=== PATIENT | female | born 1970 | race African-American/Black ===

== ENCOUNTER 2017-08-05 14:25 | Emergency (ER) | payer SELFPAY ==
[~2017-08-05] VITALS: Ht 165.1 cm; Wt 59.9 kg
--- NOTE | 2017-08-05 14:35 | NUR ---
IMPACTED EAR WAX REMOVED BY DR BRUNER.
--- NOTE | 2017-08-05 14:47 | NUR ---
Patient discharged to home in stable conditon. Written and verbal after care instructions given. Patient verbalizes understanding of instructions.
[2017-08-05 14:48] VITALS: BP 114/79
== END 2017-08-05 14:49 | disposition home or self-care (01) ==
LOC: ER 14:25
DX: H61.21 Impacted cerumen, right ear (principal); I25.10 Atherosclerotic heart disease of native coronary artery without angina pectoris
CPT/HCPCS: A4663